=== PATIENT | female | born 1970 | race Caucasian/White ===

== ENCOUNTER 2019-03-07 06:02 | Inpatient (IN) | payer OTHER ==
[~2019-03-07] VITALS: Ht 13.7 cm; Wt 78.9 kg
[~2019-03-07 06:02] MED LIST: COZAAR50 MG PO; ZANTAC150 M3 PO
[2019-03-09] MEDS ORDERED: IBUPROFEN800 MG PO (06:19)
== END 2019-03-09 08:24 | DRG 742 ==
LOC: CIR.AMB 06:02 → OB/GYN 12:49 → O/R 12:49 → OB/GYN 13:20
PROVIDERS: Surgery; ADMIT Obstetrics & Gynecology Gynecology
PROC: 0DQ84ZZ Repair Small Intestine, Percutaneous Endoscopic Approach (ICD-10-PCS; 2019-03-07)
PROC: 0UT74ZZ Resection of Bilateral Fallopian Tubes, Percutaneous Endoscopic Approach (ICD-10-PCS; principal; 2019-03-07 08:45)
PROC: 0UT24ZZ Resection of Bilateral Ovaries, Percutaneous Endoscopic Approach (ICD-10-PCS; 2019-03-07 08:45)
DX: N83.11 Corpus luteum cyst of right ovary (principal); K91.72 Accidental puncture and laceration of a digestive system organ or structure during other procedure; N83.02 Follicular cyst of left ovary